=== PATIENT | female | born 1960 | race Asian ===

== ENCOUNTER 2016-06-27 08:46 | Emergency (ER) | payer SELFPAY ==
[~2016-06-27] VITALS: Ht 152.4 cm; Wt 56.8 kg
[~2016-06-27 08:46] MED LIST: BENADRYL25 MG PO; PREDNISONE20 MG PO
[2016-06-27] MEDS ORDERED: METFORMIN HCL500 MG PO (09:20)
[2016-06-27] MEDS ORDERED: FERREX 150150 MG PO (09:23)
[2016-06-27] MEDS ORDERED: ONE DAILY MUL400 MCG PO (09:24)
[2016-06-27 09:35] LABS: HEMATOCRIT 39.4 % (36.0-46.0); MCH 24.7 PG (29.0-34.0); MCHC 33.5 G/DL (30.0-36.0); MCV 73.6 FL (83-99); MEAN PLAT.VOLUME 9.9 uM^3 (9.5-12.4); PLATELET COUNT 229 K/uL (156-360); RBC DIS.WIDTH-CV 18.7 % (11.8-14.6); RBC DIS.WIDTH-SD 48.6 % (39-53); RED BLOOD COUNT 5.35 M/uL (3.80-5.20); WHITE BLOOD COUNT 6.8 K/uL (4.1-10.2)
[2016-06-27 09:45] LABS: BASOPHIL COUNT 0.1 K/uL (0-0.1); EOSINOPHIL (%) 19.8 % (0-5); EOSINOPHIL COUNT 1.4 K/uL (0-0.3); IMMATURE GRANULOCYTE (%) 0.1 % (0.0-0.7); IMMATURE GRANULOCYTE COUNT 0.1 K/uL; LYMPHOCYTE COUNT 2.6 K/uL (1.0-2.8); MONOCYTE (%) 5.7 % (3-12); MONOCYTE COUNT 0.4 K/uL (0-0.8); NEUTROPHIL (%) 36.1 % (45-76); NEUTROPHIL COUNT 2.5 K/uL (1.8-6.4)
[2016-06-27 09:49] LABS: CHLORIDE 107 mEq/L (99-109); POTASSIUM 4.5 mEq/L (3.7-5.4); SODIUM 142 mEq/L (136-147)
[2016-06-27 09:50] LABS: GLUCOSE 118 mg/dL (70-99)
[2016-06-27 09:52] LABS: ANION GAP 12 MEQ/L (2-14)
[2016-06-27 09:54] LABS: GFR ESTIMATE (CALCULATED) > 59 mL/min/
[2016-06-27 09:55] LABS: UREA NITROGEN (BUN) 14 mg/dL (9-23)
[2016-06-27 09:57] LABS: INTER. NORMALIZED RATIO 1.1; PROTHROMBIN TIME 10.7 (9.2-11.2); PTT 24.7 (25-32)
[2016-06-27 09:58] LABS: TROP-I INTERPRETATION NEGATIVE; TROPONIN-I < 0.01 ng/mL (0.0-0.30)
[2016-06-27 11:43] LABS: HEMATOLOGY COMMENT 1 SMEAR COMPATIBLE; PLAT.SUFFICIENCY ADEQUATE; USER ID TLW
[2016-06-27 12:14] LABS: TROP-I INTERPRETATION NEGATIVE; TROPONIN-I < 0.01 ng/mL (0.0-0.30)
[2016-06-27] MEDS ORDERED: MOTRIN800 MG PO (13:02)
[2016-06-27 13:12] VITALS: BP 98/70
== END 2016-06-27 13:14 | disposition home or self-care (01) ==
LOC: EME 08:46
PROVIDERS: Emergency Medicine
DX: R07.89 Other chest pain (principal); R05 Cough; I10 Essential (primary) hypertension; E11.9 Type 2 diabetes mellitus without complications
CPT/HCPCS: 71010; 80048; 84484; 85025; 85610; 85730; 93005; 99281; 99285; J1885; J7030